=== PATIENT | male | born 1945 | race Caucasian/White ===

== ENCOUNTER 2019-11-16 15:07 | Inpatient (IN) | payer OTHER, MEDICARE ==
[~2019-11-16] VITALS: Ht 172.7 cm; Wt 114.5 kg
--- NOTE | 2019-11-16 15:42 | EKG ---
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
--- NOTE | 2019-11-16 15:42 | PHYS DOC ---
Past Medical History Past Medical History: OR Adult General Chief Complaint Chief Complaint: SHORTNESS OF BREATH HPI HPI Patient is a 74 year old male with history of OR, pacemaker, among other illnesses who presents to the ED today complaining of cough and shortness of breath that began on Wednesday. Patient reports being seen at urgent care on Wednesday and was given doxycycline and prednisone. He reports symptoms did not improve. He went back on Wednesday, he was given Tessalon Perles. He states symptoms have not improved he continues to have some symptoms. Patient denies any fever. Denies any nasal congestion. PCP Dr. Cain Review of Systems Review of Systems Constitutional: Denies fever or chills [] Eyes: Denies change in visual acuity, redness, or eye pain [] HENT: Denies nasal congestion or sore throat [] Respiratory: Reports cough and shortness of breath [] Cardiovascular: No additional information not addressed in HPI [] GI: Denies abdominal pain, nausea, vomiting, bloody stools or diarrhea [] : Denies dysuria or hematuria [] Musculoskeletal: Denies back pain or joint pain [] Integument: Denies rash or skin lesions [] Neurologic: Denies headache, focal weakness or sensory changes [] All other systems were reviewed and found to be within normal limits, except as documented in this note. Current Medications Current Medications Current Medications Medications (Trade) Dose Ordered Sig/Renetta Start Time Stop Time Status Last Admin Dose Admin Acetaminophen (Tylenol) 650 mg PRN Q4HRS PRN 11/16/19 17:45 11/17/19 17:44 Albuterol/ Ipratropium (Duoneb) 3 ml RTQID 11/16/19 20:00 11/17/19 19:59 Levofloxacin/ Dextrose 150 ml @ 100 mls/hr 1X ONCE 11/16/19 15:45 11/16/19 17:14 DC 11/16/19 16:57 100 MLS/HR Magnesium Sulfate/ Dextrose 100 ml @ 100 mls/hr 1X ONCE 11/16/19 17:45 11/16/19 18:44 Morphine Sulfate (Morphine Sulfate) 2 mg PRN Q2HR PRN 11/16/19 17:45 11/17/19 17:44 Ondansetron HCl (Zofran) 4 mg PRN Q8HRS PRN 11/16/19 17:45 11/17/19 17:44 Piperacillin Sod/ Tazobactam Sod 4.5 gm/Sodium Chloride 100 ml @ 200 mls/hr 1X ONCE 11/16/19 15:45 11/16/19 16:14 DC 11/16/19 16:10 200 MLS/HR Allergies Allergies Allergies Coded Allergies Type Severity Reaction Last Updated Verified No Known Drug Allergies 11/16/19 No Physical Exam Physical Exam Constitutional: Well developed, well nourished, no acute distress, non-toxic appearance. [] HENT: Normocephalic, atraumatic, bilateral external ears normal, oropharynx moist, no oral exudates, nose normal. [] Eyes: PERRLA, EOMI, conjunctiva normal, no discharge. [] Neck: Normal range of motion, no tenderness, supple, no stridor. [] Cardiovascular: Left upper chest with the pacemaker. Heart rate regular rhythm Lungs & Thorax: Bilateral breath sounds clear to auscultation [] Abdomen: Bowel sounds normal, soft, no tenderness, no masses, no pulsatile masses. [] Skin: Warm, dry, no erythema, no rash. [] Back: No tenderness, no CVA tenderness. [] Extremities: No tenderness, no cyanosis, no clubbing, ROM intact, no edema. [] Neurologic: Alert and oriented X 3, normal motor function, normal sensory function, no focal deficits noted. [] Psychologic: Affect normal, judgement normal, mood normal. [] Current Patient Data Vital Signs Vital Signs Date Time Temp Pulse Resp B/P (MAP) Pulse Ox O2 Delivery O2 Flow Rate FiO2 11/16/19 15:51 93 Room Air Lab Values Laboratory Tests Test 11/16/19 16:00 11/16/19 16:15 White Blood Count 10.7 x10^3/uL (4.0-11.0) Red Blood Count 4.10 x10^6/uL (4.30-5.70) L Hemoglobin 12.6 g/dL (13.0-17.5) L Hematocrit 37.0 % (39.0-53.0) L Mean Corpuscular Volume 90 fL (79-100) Mean Corpuscular Hemoglobin 31 pg (25-35) Mean Corpuscular Hemoglobin Concent 34 g/dL (31-37) Red Cell Distribution Width 13.6 % (11.5-14.5) Platelet Count 221 x10^3/uL (140-400) Neutrophils (%) (Auto) 79 % (31-73) H Lymphocytes (%) (Auto) 11 % (24-48) L Monocytes (%) (Auto) 10 % (0-9) H Eosinophils (%) (Auto) 0 % (0-3) Basophils (%) (Auto) 0 % (0-3) Neutrophils # (Auto) 8.4 x10^3/uL (1.8-7.7) H Lymphocytes # (Auto) 1.2 x10^3/uL (1.0-4.8) Monocytes # (Auto) 1.0 x10^3/uL (0.0-1.1) Eosinophils # (Auto) 0.0 x10^3/uL (0.0-0.7) Basophils # (Auto) 0.0 x10^3/uL (0.0-0.2) Sodium Level 141 mmol/L (136-145) Potassium Level 3.9 mmol/L (3.5-5.1) Chloride Level 102 mmol/L (98-107) Carbon Dioxide Level 28 mmol/L (21-32) Anion Gap 11 (6-14) Blood Urea Nitrogen 19 mg/dL (8-26) Creatinine 1.1 mg/dL (0.7-1.3) Estimated GFR (Cockcroft-Gault) 65.6 BUN/Creatinine Ratio 17 (6-20) Glucose Level 137 mg/dL (70-99) H Lactic Acid Level 2.0 mmol/L (0.4-2.0) Calcium Level 8.9 mg/dL (8.5-10.1) Magnesium Level 1.4 mg/dL (1.8-2.4) L Total Bilirubin 0.9 mg/dL (0.2-1.0) Aspartate Amino Transferase (AST) 23 U/L (15-37) Alanine Aminotransferase (ALT) 32 U/L (16-63) Alkaline Phosphatase 45 U/L (46-116) L Creatine Kinase 171 U/L (39-308) Creatine Kinase MB (Mass) 1.5 ng/mL (0.0-3.6) Creatine Kinase MB Relative Index 0.9 % (0-4) Troponin I Quantitative < 0.017 ng/mL (0.000-0.055) VR-Zqy-[id number]-Type Natriuretic Peptide 939 pg/mL (0-124) H Total Protein 6.6 g/dL (6.4-8.2) Albumin 3.8 g/dL (3.4-5.0) Albumin/Globulin Ratio 1.4 (1.0-1.7) Procalcitonin < 0.10 ng/mL (0.00-0.10) Influenza Type A Antigen Negative (NEGATIVE) Influenza Type B Antigen Negative (NEGATIVE) Laboratory Tests 11/16/19 16:00 Laboratory Tests 11/16/19 16:00 EKG EKG [address] Atkinson sinus rhythm HR 78 no STEMI[] Radiology/Procedures Radiology/Procedures []PROCEDURE: PORTABLE CHEST 1V Examination: PORTABLE CHEST 1V History: Cough Comparison/Correlation: None Findings: Portable frontal upright view of the chest was obtained. Dual-lead left-sided pacemaker is present. No pneumothorax. Right lung field is clear. Heart size is normal. Retrocardiac left basilar atelectasis/infiltrate is present. No significant pleural effusion. Bony structures are intact. Impression: Retrocardiac left basilar atelectasis/infiltrate. Electronically signed by: Nicolás Cervantes MD (11/16/2019 3:52 PM) [id number] DICTATED and SIGNED BY: NICOLÁS CERVANTES MD DATE: 11/16/19 1552 Course & Med Decision Making Course & Med Decision Making Pertinent Labs and Imaging studies reviewed. (See chart for details) This is a 74-year-old male patient presenting to the ED today complaining of shortness of breath and a cough that began Wednesday. Patient was diagnosed with pneumonia on Wednesday, was put on doxycycline and prednisone, no improvement of symptoms, went back to urgent care on Wednesday, was given Tessalon Perles. No improvement of symptoms. CBC with a normal WBC, CMP with magnesium of 1.4, lactic is normal. Patient is afebrile. Patient was given magnesium replacement in the ED. chest x-ray was noted for retrocardiac left basilar atelectasis/infiltrate. Patient was also giv en Zosyn and Levaquin in the ED. [address] Carlton who accepted patient for admission. Dragon Disclaimer Dragon Disclaimer This electronic medical record was generated, in whole or in part, using a voice recognition dictation system. Departure Departure Impression: Primary Impression: Left lower lobe pneumonia Additional Impression: Hypomagnesemia Disposition: ADMITTED INPATIENT Condition: STABLE Referrals: YOU CAIN (PCP) Problem Qualifiers Primary Impression: Left lower lobe pneumonia Pneumonia type: due to unspecified organism Qualified Codes: J18.9 - Pneumonia, unspecified organism CLOVER CULLEN APRN Nov 16, 2019 15:42
[2019-11-16] MEDS ORDERED: PIPERACILLIN/TAZOBACTAM 4.5 GM in IV NORMAL SALINE 100ML 100 ML IV ONE (15:45)
[2019-11-16] MEDS ORDERED: IPRATRPIUM/ALBUTEROL 0.5/2.5MG 3 ML NEBU. NEB ONE (15:45)
--- NOTE | 2019-11-16 15:55 | RAD ---
Examination: PORTABLE CHEST 1V History: Cough Comparison/Correlation: None Findings: Portable frontal upright view of the chest was obtained. Dual-lead left-sided pacemaker is present. No pneumothorax. Right lung field is clear. Heart size is normal. Retrocardiac left basilar atelectasis/infiltrate is present. No significant pleural effusion. Bony structures are intact. Impression: Retrocardiac left basilar atelectasis/infiltrate. Electronically signed by: Nicolás Angel MD (11/16/2019 3:52 PM) [id number]
[2019-11-16 16:16] LABS: BASO % 0 % (0-3); EOS % 0 % (0-3); HEMOGLOBIN 12.6 g/dL (13.0-17.5); LYMPH # 1.2 x10^3/uL (1.0-4.8); LYMPH % 11 % (24-48); MEAN CORPUSCULAR HEMOGLOBIN 31 pg (25-35); MEAN CORPUSCULAR HGB CONC 34 g/dL (31-37); MEAN CORPUSCULAR VOLUME 90 fL (79-100); MONO % 10 % (0-9); NEUT # 8.4 x10^3/uL (1.8-7.7); NEUT % 79 % (31-73); PLATELET COUNT 221 x10^3/uL (140-400); RED CELL DISTRIBUTION WIDTH 13.6 % (11.5-14.5); WHITE BLOOD COUNT 10.7 x10^3/uL (4.0-11.0)
[2019-11-16 16:42] LABS: CALCIUM 8.9 mg/dL (8.5-10.1); CREATININE 1.1 mg/dL (0.7-1.3); GFR 65.6; POTASSIUM 3.9 mmol/L (3.5-5.1)
[2019-11-16 16:56] LABS: ALBUMIN 3.8 g/dL (3.4-5.0); ALBUMIN/GLOBULIN RATIO 1.4 (1.0-1.7); MAGNESIUM 1.4 mg/dL (1.8-2.4); TOTAL BILIRUBIN 0.9 mg/dL (0.2-1.0); TOTAL PROTEIN 6.6 g/dL (6.4-8.2)
[2019-11-16 17:04] LABS: INFLUENZA A PATIENT NEGATIVE (NEGATIVE); INFLUENZA B PATIENT NEGATIVE (NEGATIVE)
[2019-11-16] MEDS ORDERED: MAGNESIUM SULFATE 1GM 100 ML IV ONE (17:45)
[2019-11-16] MEDS ORDERED: MORPHINE SULFATE 2 MG/ML VIAL. IV PRN (17:45)
[2019-11-16] MEDS ORDERED: ONDANSETRON PF 4 MG/2 ML VIAL. IV PRN (17:45)
[2019-11-16] MEDS ORDERED: ACETAMINOPHEN 325 MG TABLET. PO PRN (17:45)
[2019-11-16 19:30] VITALS: BP 116/69
--- NOTE | 2019-11-16 19:35 | NUR ---
Pt. arrived on unit at 1935 by bed from ER. Pt. complains of pain being 7/10 but feels comfortable. Admission assessment and questions were done at this time. Pt. is sitting in his chair with call light in reach. Will continue to monitor.
--- NOTE | 2019-11-16 20:06 | NUR ---
Ep[employer]. Doesn't eat pork. Addendum: 11/16/19 at 2009 by VINICIO SCOTT RN Amended: Links added.
[2019-11-16] MEDS ORDERED: DEXTROSE 50% 25 GM / 50ML DISP.SYRIN. IV PRN (20:15)
[2019-11-16] MEDS ORDERED: IV DEXTROSE 5% 250 ML BAG. IV PRN (20:15)
[2019-11-16] MEDS ORDERED: guaiFENesin/CODEINE 100mg/10mg 5 ML LIQUID PO PRN (20:15)
[2019-11-16] MEDS ORDERED: BENZONATATE 100 MG CAPSULE. PO PRN (20:15)
[2019-11-16] MEDS ORDERED: SITA1TAB7 PO (20:28)
[2019-11-16] MEDS ORDERED: ASPI-630 PO (20:28)
[2019-11-16] MEDS ORDERED: SITA1TAB11 PO (20:28)
[2019-11-16] MEDS ORDERED: METO25TA2 PO (20:28)
[2019-11-16] MEDS ORDERED: TAMS0.4C97 PO (20:28)
[2019-11-16] MEDS ORDERED: SIMV80TA17 PO (20:28)
[2019-11-16] MEDS ORDERED: PANT20TA2 PO (20:28)
[2019-11-16] MEDS ORDERED: LISI10TA2 PO (20:28)
[2019-11-16] MEDS ORDERED: MAGNESIUM SULFATE 2GM 50 ML IV ONE (21:00)
[2019-11-16] MEDS ORDERED: METOPROLOL TART IMMED RELEASE 25 MG TABLET. PO SCH (21:00)
[2019-11-16] MEDS: IPRATRPIUM/ALBUTEROL 0.5/2.5MG 3 ML NEBU. NEB SCH (21:09)
--- NOTE | 2019-11-16 21:09 | PDOC1 ---
History and Physical Date of Admission Date of Admission DATE: 11/16/19 TIME: 21:05 Source Source: Chart review, Patient History of Present Illness History of Present Illness Grupo is a 74 year old male admit from the ED today complaining of cough and shortness of breath that began on Wednesday. Patient reports being seen at urgent care on Wednesday and was given doxycycline and prednisone. He reports symptoms did not improve. He went back on Wednesday, he was given Tessalon Perles. He states symptoms have not improved he continues to have some symptoms. Patient denies any fever. Denies any nasal congestion. 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, Past Medical History Cardiovascular: CAD (PR in 2002), HTN Pulmonary: No pertinent hx Hepatobiliary: No pertinent hx Psych: No pertinent hx ENT: No pertinent hx Endocrine: Diabetes Dermatology: No pertinent hx Social History Smoke: No ALCOHOL: rare Drugs: None Current Problem List Problem List Problems Medical Problems: (1) Hypomagnesemia Status: Acute (2) Left lower lobe pneumonia Status: Acute Current Medications Current Medications Current Medications Piperacillin Sod/ Tazobactam Sod 4.5 gm/Sodium Chloride 100 ml @ 200 mls/hr 1X ONCE IV Last administered on 11/16/19at 16:10; Start 11/16/19 at 15:45; Stop 11/16/19 at 16:14; Status DC Levofloxacin/ Dextrose 150 ml @ 100 mls/hr 1X ONCE IV Last administered on 11/16/19at 16:57; Start 11/16/19 at 15:45; Stop 11/16/19 at 17:14; Status DC Albuterol/ Ipratropium (Duoneb) 3 ml 1X ONCE NEB Last administered on 11/16/19at 15:51; Start 11/16/19 at 15:45; Stop 11/16/19 at 16:04; Status DC Ondansetron HCl (Zofran) 4 mg PRN Q8HRS PRN IV NAUSEA/VOMITING; Start 11/16/19 at 17:45; Stop 11/17/19 at 17:44 Morphine Sulfate (Morphine Sulfate) 2 mg PRN Q2HR PRN IV PAIN; Start 11/16/19 at 17:45; Stop 11/17/19 at 17:44 Acetaminophen (Tylenol) 650 mg PRN Q4HRS PRN PO FEVER; Start 11/16/19 at 17:45; Stop 11/17/19 at 17:44 Albuterol/ Ipratropium (Duoneb) 3 ml RTQID NEB ; Start 11/16/19 at 20:00; Stop 11/17/19 at 19:59 Magnesium Sulfate/ Dextrose 100 ml @ 100 mls/hr 1X ONCE IV Last administered on 11/16/19at 18:23; Start 11/16/19 at 17:45; Stop 11/16/19 at 18:44; Status DC Magnesium Sulfate 50 ml @ 25 mls/hr 1X ONCE IV ; Start 11/16/19 at 21:00; Stop 11/16/19 at 22:59 Metoprolol Tartrate (Lopressor) 25 mg BID PO ; Start 11/16/19 at 21:00 Insulin Human Lispro (HumaLOG) 0-9 UNITS TIDWMEALS SQ ; Start 11/17/19 at 08:00 Dextrose (Dextrose 50%-Water Syringe) 12.5 gm PRN Q15MIN PRN IV SEE COMMENTS; Start 11/16/19 at 20:15 Dextrose (Iv Dextrose 5%) 250 ml PRN Q15MIN PRN IV SEE COMMENTS; Start 11/16/19 at 20:15 Guaifenesin/ Codeine Phosphate (Robitussin Ac) 10 ml PRN Q6HRS PRN PO COUGH; Start 11/16/19 at 20:15 Benzonatate (Tessalon Perle) 100 mg PRN TID PRN PO cough 1ST CHOICE; Start 11/16/19 at 20:15 Active Scripts Active Reported Janumet 50-1,000 Mg Tablet (Sitagliptin Phos/Metformin Hcl) 1 Each Tablet 1 Tab PO BID Janumet 50-500 Mg Tablet (Sitagliptin Phos/Metformin Hcl) 1 Each Tablet 1 Tab PO BID Lisinopril 10 Mg Tablet 1 Tab PO DAILYWBKFT Toprol Xl (Metoprolol Succinate) 25 Mg Tab.er.24h 2 Tab PO DAILYWBKFT 30 Days Flomax (Tamsulosin Hcl) 0.4 Mg Cap.er.24h 2 Cap PO HS Simvastatin 80 Mg Tablet 1,040 Mg PO HS Protonix (Pantoprazole Sodium) 20 Mg Tablet.dr 2 Tab PO DAILY Aspirin 81 Mg Tab.chew 1 Tab PO DAILY Allergies Allergies: Coded Allergies: No Known Drug Allergies (Unverified , 11/16/19) ROS General: YES: Chills; No: Night Sweats, Fatigue, Malaise, Appetite, Other PSYCHOLOGICAL ROS: No: Anxiety, Behavioral Disorder, Concentration difficultie, Decreased libido, Depression, Disorientation, Hallucinations, Hostility, Irritablity, Memory difficulties, Mood Swings, Obsessive thoughts, Physical abuse, Sexual abuse, Sleep disturbances, Suicidal ideation, Other Eyes: No Blurry vision, No Decreased vision, No Double vision, No Dry eyes, No Excessive tearing, No Eye Pain, No Itchy Eyes, No Loss of vision, No Photophobia, No Scotomata, No Uses contacts, No Uses glasses, No Other HEENT: No: Heacaches, Visual Changes, Hearing change, Nasal congestion, Nasal discharge, Oral lesions, Sinus pain, Sore Throat, Epistaxis, Sneezing, Snoring, Tinnitus, Vertigo, Vocal changes, Other Respiratory: YES: Cough, Shortness of breath, SOB with excertion, Sputum Changes; No: Hemoptysis, Orthopnea, Pleuritic Pain, Stridor, Tachypnea, Wheezing, Other Cardiovascular: No Chest Pain, No Palpitations, No Orthopnea, No Paroxysmal Noc. Dyspnea, No Edema, No Lt Headedness, No Other Gastrointestinal: No Nausea, No Vomiting, No Abdominal Pain, No Diarrhea, No Constipation, No Melena, No Hematochezia, No Other Genitourinary: No Dysuria, No Frequency, No Incontinence, No Hematuria, No Retention, No Discharge, No Urgency, No Pain, No Flank Pain, No Other, No , No , No , No , No , No , No Musculoskeletal: Yes Joint Stiffness; No Gait Disturbance, No Joint Pain, No Joint Swelling, No Muscle Pain, No Muscular Weakness, No Pain In:, No Swelling In:, No Other Neurological: No Behavorial Changes, No Bowel/Bladder ControlChng, No Confusion, No Dizziness, No Gait Disturbance, No Headaches, No Impaired Coord/balance, No Memory Loss, No Numbness/Tingling, No Seizures, No Speech Problems, No Tremors, No Visual Changes, No Weakness, No Other Skin: No Dry Skin, No Eczema, No Hair Changes, No Lumps, No Mole Changes, No Mottling, No Nail Changes, No Pruritus, No Rash, No Skin Lesion Changes, No Other, No Acne Physical Exam General: Alert, Oriented X3, mild distress HEENT: Atraumatic, PERRLA, EOMI, Mucous membr. moist/pink Lungs: Clear to auscultation Heart: S1S2, RRR, no gallops Extremities: No clubbing, No edema Skin: No breakdown Neuro: Normal gait, Normal speech, Normal tone, Sensation intact Psych/Mental Status: Mood NL Vitals Vitals Vital Signs Date Time Temp Pulse Resp B/P (MAP) Pulse Ox O2 Delivery O2 Flow Rate FiO2 11/16/19 19:30 97.9 63 22 116/69 (85) 94 Room Air 97.9 11/16/19 19:00 2.0 Labs Labs Laboratory Tests Test 11/16/19 16:00 11/16/19 16:15 11/16/19 20:57 White Blood Count 10.7 x10^3/uL (4.0-11.0) Red Blood Count 4.10 x10^6/uL (4.30-5.70) Hemoglobin 12.6 g/dL (13.0-17.5) Hematocrit 37.0 % (39.0-53.0) Mean Corpuscular Volume 90 fL (79-100) Mean Corpuscular Hemoglobin 31 pg (25-35) Mean Corpuscular Hemoglobin Concent 34 g/dL (31-37) Red Cell Distribution Width 13.6 % (11.5-14.5) Platelet Count 221 x10^3/uL (140-400) Neutrophils (%) (Auto) 79 % (31-73) Lymphocytes (%) (Auto) 11 % (24-48) Monocytes (%) (Auto) 10 % (0-9) Eosinophils (%) (Auto) 0 % (0-3) Basophils (%) (Auto) 0 % (0-3) Neutrophils # (Auto) 8.4 x10^3/uL (1.8-7.7) Lymphocytes # (Auto) 1.2 x10^3/uL (1.0-4.8) Monocytes # (Auto) 1.0 x10^3/uL (0.0-1.1) Eosinophils # (Auto) 0.0 x10^3/uL (0.0-0.7) Basophils # (Auto) 0.0 x10^3/uL (0.0-0.2) Sodium Level 141 mmol/L (136-145) Potassium Level 3.9 mmol/L (3.5-5.1) Chloride Level 102 mmol/L (98-107) Carbon Dioxide Level 28 mmol/L (21-32) Anion Gap 11 (6-14) Blood Urea Nitrogen 19 mg/dL (8-26) Creatinine 1.1 mg/dL (0.7-1.3) Estimated GFR (Cockcroft-Gault) 65.6 BUN/Creatinine Ratio 17 (6-20) Glucose Level 137 mg/dL (70-99) Lactic Acid Level 2.0 mmol/L (0.4-2.0) Calcium Level 8.9 mg/dL (8.5-10.1) Magnesium Level 1.4 mg/dL (1.8-2.4) Total Bilirubin 0.9 mg/dL (0.2-1.0) Aspartate Amino Transf (AST/SGOT) 23 U/L (15-37) Alanine Aminotransferase (ALT/SGPT) 32 U/L (16-63) Alkaline Phosphatase 45 U/L (46-116) Creatine Kinase 171 U/L (39-308) Creatine Kinase MB (Mass) 1.5 ng/mL (0.0-3.6) Creatine Kinase MB Relative Index 0.9 % (0-4) Troponin I Quantitative < 0.017 ng/mL (0.000-0.055) GW-Skp-F-Type Natriuretic Peptide 939 pg/mL (0-124) Total Protein 6.6 g/dL (6.4-8.2) Albumin 3.8 g/dL (3.4-5.0) Albumin/Globulin Ratio 1.4 (1.0-1.7) Procalcitonin < 0.10 ng/mL (0.00-0.10) Influenza Type A Antigen Negative (NEGATIVE) Influenza Type B Antigen Negative (NEGATIVE) Glucose (Fingerstick) 205 mg/dL (70-99) Laboratory Tests Test 11/16/19 16:00 11/16/19 16:15 11/16/19 20:57 White Blood Count 10.7 x10^3/uL (4.0-11.0) Red Blood Count 4.10 x10^6/uL (4.30-5.70) Hemoglobin 12.6 g/dL (13.0-17.5) Hematocrit 37.0 % (39.0-53.0) Mean Corpuscular Volume 90 fL (79-100) Mean Corpuscular Hemoglobin 31 pg (25-35) Mean Corpuscular Hemoglobin Concent 34 g/dL (31-37) Red Cell Distribution Width 13.6 % (11.5-14.5) Platelet Count 221 x10^3/uL (140-400) Neutrophils (%) (Auto) 79 % (31-73) Lymphocytes (%) (Auto) 11 % (24-48) Monocytes (%) (Auto) 10 % (0-9) Eosinophils (%) (Auto) 0 % (0-3) Basophils (%) (Auto) 0 % (0-3) Neutrophils # (Auto) 8.4 x10^3/uL (1.8-7.7) Lymphocytes # (Auto) 1.2 x10^3/uL (1.0-4.8) Monocytes # (Auto) 1.0 x10^3/uL (0.0-1.1) Eosinophils # (Auto) 0.0 x10^3/uL (0.0-0.7) Basophils # (Auto) 0.0 x10^3/uL (0.0-0.2) Sodium Level 141 mmol/L (136-145) Potassium Level 3.9 mmol/L (3.5-5.1) Chloride Level 102 mmol/L (98-107) Carbon Dioxide Level 28 mmol/L (21-32) Anion Gap 11 (6-14) Blood Urea Nitrogen 19 mg/dL (8-26) Creatinine 1.1 mg/dL (0.7-1.3) Estimated GFR (Cockcroft-Gault) 65.6 BUN/Creatinine Ratio 17 (6-20) Glucose Level 137 mg/dL (70-99) Lactic Acid Level 2.0 mmol/L (0.4-2.0) Calcium Level 8.9 mg/dL (8.5-10.1) Magnesium Level 1.4 mg/dL (1.8-2.4) Total Bilirubin 0.9 mg/dL (0.2-1.0) Aspartate Amino Transf (AST/SGOT) 23 U/L (15-37) Alanine Aminotransferase (ALT/SGPT) 32 U/L (16-63) Alkaline Phosphatase 45 U/L (46-116) Creatine Kinase 171 U/L (39-308) Creatine Kinase MB (Mass) 1.5 ng/mL (0.0-3.6) Creatine Kinase MB Relative Index 0.9 % (0-4) Troponin I Quantitative < 0.017 ng/mL (0.000-0.055) WE-Vfg-V-Type Natriuretic Peptide 939 pg/mL (0-124) Total Protein 6.6 g/dL (6.4-8.2) Albumin 3.8 g/dL (3.4-5.0) Albumin/Globulin Ratio 1.4 (1.0-1.7) Procalcitonin < 0.10 ng/mL (0.00-0.10) Influenza Type A Antigen Negative (NEGATIVE) Influenza Type B Antigen Negative (NEGATIVE) Glucose (Fingerstick) 205 mg/dL (70-99) VTE Prophylaxis Ordered VTE Prophylaxis Devices: No VTE Pharmacological Prophylaxi: Yes Assessment/Plan Assessment/Plan cough outpatient pneumonia, cough and dyspnea, not improved dm2, will have SSI obese, BMI 38 DIANA, he brought his CPAP hypomag, replaced consutl PULM admit obs JAKY BIRCH MD Nov 16, 2019 21:09
[2019-11-16] MEDS ORDERED: ENOXAPARIN 40 MG/0.4 ML SYRINGE. SQ SCH (22:00)
[2019-11-16] MEDS ORDERED: EZET1TAB35 PO (22:11)
[2019-11-16 23:00] VITALS: BP 99/50
[2019-11-16] MEDS ORDERED: TAMSULOSIN 0.4 MG CAP.ER.24H. PO SCH (23:00)
[2019-11-16] MEDS ORDERED: EZETIMIBE 10 MG TABLET. PO SCH (23:00)
[2019-11-16] MEDS ORDERED: SIMVASTATIN 40 MG TABLET. PO SCH (23:00)
--- NOTE | 2019-11-16 23:00 | NUR ---
Pt. refused lovenox tonight. RN explained what it was for but patient would like to speak to MD before taking it.
[2019-11-16] MEDS: PIPERACILLIN/TAZOBACTAM 4.5 GM in IV NORMAL SALINE 100ML 100 ML IV SCH (23:03)
[2019-11-17 03:00] VITALS: BP 122/64
[2019-11-17 05:04] LABS: BASO % 0 % (0-3); EOS % 0 % (0-3); HEMATOCRIT 32.7 % (39.0-53.0); HEMOGLOBIN 11.6 g/dL (13.0-17.5); LYMPH # 0.9 x10^3/uL (1.0-4.8); LYMPH % 11 % (24-48); MEAN CORPUSCULAR HEMOGLOBIN 32 pg (25-35); MEAN CORPUSCULAR HGB CONC 36 g/dL (31-37); MEAN CORPUSCULAR VOLUME 89 fL (79-100); MONO # 0.8 x10^3/uL (0.0-1.1); MONO % 11 % (0-9); NEUT % 78 % (31-73); PLATELET COUNT 196 x10^3/uL (140-400); RED BLOOD COUNT 3.67 x10^6/uL (4.30-5.70); RED CELL DISTRIBUTION WIDTH 13.6 % (11.5-14.5); WHITE BLOOD COUNT 7.7 x10^3/uL (4.0-11.0)
[2019-11-17] MEDS: PIPERACILLIN/TAZOBACTAM 4.5 GM in IV NORMAL SALINE 100ML 100 ML IV SCH ×2 (06:03→12:16)
[2019-11-17] MEDS: IPRATRPIUM/ALBUTEROL 0.5/2.5MG 3 ML NEBU. NEB SCH ×3 (07:11→16:05)
[2019-11-17 07:20] VITALS: BP 109/56
[2019-11-17] MEDS ORDERED: PANTOPRAZOLE 40 MG TABLET.DR. PO SCH (07:30)
[2019-11-17] MEDS ORDERED: metFORMIN 500 MG TABLET PO SCH (08:00)
[2019-11-17] MEDS: INSULIN LISPRO 300 UNITS/3 ML VIAL. SQ SCH ×2 (08:00→12:00)
[2019-11-17] MEDS ORDERED: LISINOPRIL 10 MG TABLET PO SCH (08:00)
[2019-11-17] MEDS ORDERED: METOPROLOL SUCC 24HR ER 50 MG TAB.ER.24H. PO SCH (08:00)
[2019-11-17] MEDS ORDERED: LINAGLIPTIN 5 MG TABLET PO SCH (09:00)
[2019-11-17] MEDS ORDERED: ASPIRIN CHEWABLE 81 MG TABLET. PO SCH (09:00)
[2019-11-17 11:13] VITALS: BP 117/49
[2019-11-17 11:15] VITALS: BP 116/74
--- NOTE | 2019-11-17 11:28 | NUR ---
SW following. Discussed with RN, pt is from home with family, gets around okay. Pt has pneumonia. RN advised no SW needs at this time. SW will continue to follow should any discharge needs arise.
--- NOTE | 2019-11-17 12:01 | PDOC ---
PULMONARY PROGRESS NOTES Vitals Vital Signs Date Time Temp Pulse Resp B/P (MAP) Pulse Ox O2 Delivery O2 Flow Rate FiO2 11/17/19 11:15 97.7 70 16 116/74 (88) 96 97.7 11/17/19 11:13 Room Air 11/16/19 19:00 2.0 Labs Laboratory Tests Test 11/16/19 16:00 11/16/19 16:15 11/16/19 20:57 11/17/19 03:30 White Blood Count 10.7 x10^3/uL (4.0-11.0) 7.7 x10^3/uL (4.0-11.0) Red Blood Count 4.10 x10^6/uL (4.30-5.70) 3.67 x10^6/uL (4.30-5.70) Hemoglobin 12.6 g/dL (13.0-17.5) 11.6 g/dL (13.0-17.5) Hematocrit 37.0 % (39.0-53.0) 32.7 % (39.0-53.0) Mean Corpuscular Volume 90 fL (79-100) 89 fL (79-100) Mean Corpuscular Hemoglobin 31 pg (25-35) 32 pg (25-35) Mean Corpuscular Hemoglobin Concent 34 g/dL (31-37) 36 g/dL (31-37) Red Cell Distribution Width 13.6 % (11.5-14.5) 13.6 % (11.5-14.5) Platelet Count 221 x10^3/uL (140-400) 196 x10^3/uL (140-400) Neutrophils (%) (Auto) 79 % (31-73) 78 % (31-73) Lymphocytes (%) (Auto) 11 % (24-48) 11 % (24-48) Monocytes (%) (Auto) 10 % (0-9) 11 % (0-9) Eosinophils (%) (Auto) 0 % (0-3) 0 % (0-3) Basophils (%) (Auto) 0 % (0-3) 0 % (0-3) Neutrophils # (Auto) 8.4 x10^3/uL (1.8-7.7) 6.0 x10^3/uL (1.8-7.7) Lymphocytes # (Auto) 1.2 x10^3/uL (1.0-4.8) 0.9 x10^3/uL (1.0-4.8) Monocytes # (Auto) 1.0 x10^3/uL (0.0-1.1) 0.8 x10^3/uL (0.0-1.1) Eosinophils # (Auto) 0.0 x10^3/uL (0.0-0.7) 0.0 x10^3/uL (0.0-0.7) Basophils # (Auto) 0.0 x10^3/uL (0.0-0.2) 0.0 x10^3/uL (0.0-0.2) Sodium Level 141 mmol/L (136-145) Potassium Level 3.9 mmol/L (3.5-5.1) Chloride Level 102 mmol/L (98-107) Carbon Dioxide Level 28 mmol/L (21-32) Anion Gap 11 (6-14) Blood Urea Nitrogen 19 mg/dL (8-26) Creatinine 1.1 mg/dL (0.7-1.3) Estimated GFR (Cockcroft-Gault) 65.6 BUN/Creatinine Ratio 17 (6-20) Glucose Level 137 mg/dL (70-99) Lactic Acid Level 2.0 mmol/L (0.4-2.0) Calcium Level 8.9 mg/dL (8.5-10.1) Magnesium Level 1.4 mg/dL (1.8-2.4) Total Bilirubin 0.9 mg/dL (0.2-1.0) Aspartate Amino Transf (AST/SGOT) 23 U/L (15-37) Alanine Aminotransferase (ALT/SGPT) 32 U/L (16-63) Alkaline Phosphatase 45 U/L (46-116) Creatine Kinase 171 U/L (39-308) Creatine Kinase MB (Mass) 1.5 ng/mL (0.0-3.6) Creatine Kinase MB Relative Index 0.9 % (0-4) Troponin I Quantitative < 0.017 ng/mL (0.000-0.055) YA-Kww-W-Type Natriuretic Peptide 939 pg/mL (0-124) Total Protein 6.6 g/dL (6.4-8.2) Albumin 3.8 g/dL (3.4-5.0) Albumin/Globulin Ratio 1.4 (1.0-1.7) Procalcitonin < 0.10 ng/mL (0.00-0.10) Influenza Type A Antigen Negative (NEGATIVE) Influenza Type B Antigen Negative (NEGATIVE) Glucose (Fingerstick) 205 mg/dL (70-99) Test 11/17/19 07:49 11/17/19 11:56 Glucose (Fingerstick) 133 mg/dL (70-99) 117 mg/dL (70-99) Laboratory Tests Test 11/16/19 16:00 11/16/19 16:15 11/16/19 20:57 11/17/19 03:30 White Blood Count 10.7 x10^3/uL (4.0-11.0) 7.7 x10^3/uL (4.0-11.0) Red Blood Count 4.10 x10^6/uL (4.30-5.70) 3.67 x10^6/uL (4.30-5.70) Hemoglobin 12.6 g/dL (13.0-17.5) 11.6 g/dL (13.0-17.5) Hematocrit 37.0 % (39.0-53.0) 32.7 % (39.0-53.0) Mean Corpuscular Volume 90 fL (79-100) 89 fL (79-100) Mean Corpuscular Hemoglobin 31 pg (25-35) 32 pg (25-35) Mean Corpuscular Hemoglobin Concent 34 g/dL (31-37) 36 g/dL (31-37) Red Cell Distribution Width 13.6 % (11.5-14.5) 13.6 % (11.5-14.5) Platelet Count 221 x10^3/uL (140-400) 196 x10^3/uL (140-400) Neutrophils (%) (Auto) 79 % (31-73) 78 % (31-73) Lymphocytes (%) (Auto) 11 % (24-48) 11 % (24-48) Monocytes (%) (Auto) 10 % (0-9) 11 % (0-9) Eosinophils (%) (Auto) 0 % (0-3) 0 % (0-3) Basophils (%) (Auto) 0 % (0-3) 0 % (0-3) Neutrophils # (Auto) 8.4 x10^3/uL (1.8-7.7) 6.0 x10^3/uL (1.8-7.7) Lymphocytes # (Auto) 1.2 x10^3/uL (1.0-4.8) 0.9 x10^3/uL (1.0-4.8) Monocytes # (Auto) 1.0 x10^3/uL (0.0-1.1) 0.8 x10^3/uL (0.0-1.1) Eosinophils # (Auto) 0.0 x10^3/uL (0.0-0.7) 0.0 x10^3/uL (0.0-0.7) Basophils # (Auto) 0.0 x10^3/uL (0.0-0.2) 0.0 x10^3/uL (0.0-0.2) Sodium Level 141 mmol/L (136-145) Potassium Level 3.9 mmol/L (3.5-5.1) Chloride Level 102 mmol/L (98-107) Carbon Dioxide Level 28 mmol/L (21-32) Anion Gap 11 (6-14) Blood Urea Nitrogen 19 mg/dL (8-26) Creatinine 1.1 mg/dL (0.7-1.3) Estimated GFR (Cockcroft-Gault) 65.6 BUN/Creatinine Ratio 17 (6-20) Glucose Level 137 mg/dL (70-99) Lactic Acid Level 2.0 mmol/L (0.4-2.0) Calcium Level 8.9 mg/dL (8.5-10.1) Magnesium Level 1.4 mg/dL (1.8-2.4) Total Bilirubin 0.9 mg/dL (0.2-1.0) Aspartate Amino Transf (AST/SGOT) 23 U/L (15-37) Alanine Aminotransferase (ALT/SGPT) 32 U/L (16-63) Alkaline Phosphatase 45 U/L (46-116) Creatine Kinase 171 U/L (39-308) Creatine Kinase MB (Mass) 1.5 ng/mL (0.0-3.6) Creatine Kinase MB Relative Index 0.9 % (0-4) Troponin I Quantitative < 0.017 ng/mL (0.000-0.055) MH-Ald-J-Type Natriuretic Peptide 939 pg/mL (0-124) Total Protein 6.6 g/dL (6.4-8.2) Albumin 3.8 g/dL (3.4-5.0) Albumin/Globulin Ratio 1.4 (1.0-1.7) Procalcitonin < 0.10 ng/mL (0.00-0.10) Influenza Type A Antigen Negative (NEGATIVE) Influenza Type B Antigen Negative (NEGATIVE) Glucose (Fingerstick) 205 mg/dL (70-99) Test 11/17/19 07:49 11/17/19 11:56 Glucose (Fingerstick) 133 mg/dL (70-99) 117 mg/dL (70-99) Medications Active Scripts Medications Dose Route/Sig Max Daily Dose Days Date Category Vytorin 10-40 Mg Tablet (Ezetimibe/Simvastatin) 1 Each Tablet 1 Tab PO HS 30 11/16/19 Reported Janumet 50-1,000 Mg Tablet (Sitagliptin Phos/Metformin Hcl) 1 Each Tablet 1 Tab PO BID 11/16/19 Reported Lisinopril 10 Mg Tablet 1 Tab PO DAILYWBKFT 11/16/19 Reported Toprol Xl (Metoprolol Succinate) 25 Mg Tab.er.24h 2 Tab PO DAILYWBKFT 30 11/16/19 Reported Flomax (Tamsulosin Hcl) 0.4 Mg Cap.er.24h 2 Cap PO HS 11/16/19 Reported Protonix (Pantoprazole Sodium) 20 Mg Tablet.dr 2 Tab PO DAILY 11/16/19 Reported Aspirin 81 Mg Tab.chew 1 Tab PO DAILY 11/16/19 Reported Impression . FULL NOTE DICTATED SUSPECT PNEUMONIA WILL RULE OUT PE IF CT ANGIO IS NEGATIVE OK TO DC LATER TODAY ON LEVAQUIN FOLLOW UP WITH ME IN 4 WEEKS THANKS MARIA LUISA OCASIO MD Nov 17, 2019 12:01
[2019-11-17] MEDS ORDERED: IOHEXOL 350 MG/ML 100 ML VIAL. IV ONE (12:15)
[2019-11-17] MEDS ORDERED: LEVO750T31 PO (12:26)
--- NOTE | 2019-11-17 14:04 | CONS ---
DATE OF CONSULTATION: 11/17/2019 ATTENDING PHYSICIAN: Bell Carlton MD REASON FOR CONSULTATION: The patient seen in pulmonary consultation at the request of Dr. Carlton for increasing shortness of air, abnormal chest x-ray. HISTORY OF PRESENT ILLNESS: The patient is a 74-year-old nonsmoker that presented to the [facility] couple of days ago. He started feeling bad over the weekend, increasing shortness of breath, fever, acute onset of shortness of breath associated with chest discomfort. He was seen in the Urgent Care Center, had a chest x-ray revealing lower lobe "pneumonia." He was treated. He was given doxycycline. No improvement. He presented to the Emergency Room, had a chest x-ray which confirmed an infiltrate, retrocardiac. I was asked to see him in consultation. The patient has no prior history of tobacco use or pulmonary disorders. He drives approximately 120 minutes per day sitting in a car. He denies any lower extremity pain or edema. No recent lower extremity trauma. No prior history of DVT or pulmonary embolism. PAST MEDICAL HISTORY: Coronary artery disease with previous myocardial infarction in 2002, hypertension, diabetes, obstructive sleep apnea. PAST SURGICAL HISTORY: No recent major surgeries. ALLERGIES: No known drug allergies. REVIEW OF SYSTEMS: CONSTITUTIONAL: No fever or chills. EYES: No change in visual acuity. HENT: No nasal congestion or sore throat. PULMONARY: As indicated above. CARDIOVASCULAR: As indicated above. GASTROINTESTINAL: No nausea, vomiting, diarrhea. GENITOURINARY: No dysuria or frequency. MUSCULOSKELETAL: No localized muscle aches or joint pains. SKIN: No new skin rashes. NEUROLOGIC: No headaches, diplopia, or blurred vision. PHYSICAL EXAMINATION: GENERAL: Morbid obese individual, in no respiratory distress. VITAL SIGNS: Currently on room air. HEENT: Eyes, the sclerae were nonicteric. NECK: Jugular venous distention could not be assessed secondary to body habitus. CHEST: Full expansion. LUNGS: Diminished breath sounds throughout both lung busch. Some crackles in the bases. CARDIOVASCULAR: Regular rate and rhythm with S1, S2. No S3. ABDOMEN: Soft, nontender, nondistended. EXTREMITIES: No clubbing, cyanosis, or edema. LABORATORY DATA: Reviewed. Serology for influenza was negative. Electrolytes were noted. White count was normal. Chest x-ray as indicated above. IMPRESSION: 1. Abnormal x-ray. 2. Progressive dyspnea. 3. Pleurisy. PLAN: I concur with treatment for pneumonia, suspect Gram-negative. Considering the patient's acute onset of shortness of air and his 2-hour drive on a daily basis, we will proceed with ruling out possibility of PE with pulmonary infarct. My clinical suspicion is low. With that being said, we will complete workup. If CT angiogram is negative, may discharge the patient home later on today on Levaquin. I do appreciate the privilege in sharing in the patient's care. MARIA LUISA OCASIO MD DR: RADHA/lionel JOB#: [id number] / [id number]
--- NOTE | 2019-11-17 14:56 | RAD ---
CTA OF THE CHEST WITH AND WITHOUT CONTRAST Clinical indications: Shortness of air. Technique: Noncontrast axial localizer was performed. After IV infusion of 100 cc of Omnipaque 350, helical CT scanning of the chest was performed using the CT pulmonary embolism protocol. A coronal MIP reconstruction was generated. PQRS compliance Statement One or more of the following individualized dose reduction techniques were utilized for this study: 1. Automated exposure control 2. Adjustment of the mA and/or kV according to patient size 3. Use of iterative reconstruction technique Comparison: None available. Findings: Right paratracheal aortic pulmonary window lymph nodes are seen which are not significantly enlarged. Bilateral hilar lymph nodes are seen which are not significantly enlarged. These lymph nodes most likely are reactive in nature. No pulmonary embolism is evident. No aneurysmal dilatation or dissection of the thoracic aorta is seen. Calcified atheromatous disease of the coronary arteries is seen. The heart size is mildly enlarged. No pericardial effusion is seen. Minimal bilateral pleural effusions are seen there is a dense consolidative lung infiltrate or bronchograms within the left lower lobe. Smaller consolidative lung field is seen within the posterior and lateral aspects of the right lower lobe. No pneumothorax is seen. The proximal bronchial tree is patent. No adrenal mass T12 vertebral body is not completely seen in this study. Lucency of the superior aspect of the T12 vertebral body is seen. Lytic process is possible. IMPRESSION: No pulmonary embolism. Consolidative lung infiltrates within the lower lobes bilaterally worse on the left side. Bilateral pneumonia or aspiration pneumonitis. Minimal small bilateral pleural effusions are seen. Reactive mediastinal and hilar lymphadenopathy. Calcified atheromatous disease of the coronary arteries. Mild cardiomegaly. Lucency of the superior aspect of the T12 vertebral body. Lytic process is possible. Therefore, recommend thoracic spine MRI study for further evaluation. Electronically signed by: Kike Menjivar MD (11/17/2019 2:53 PM) [id number]
[2019-11-17 15:15] VITALS: BP 107/53
--- NOTE | 2019-11-17 16:00 | NUR ---
CT scan was negative. Okay to discharge by Dr. Carlton.
--- NOTE | 2019-11-17 16:25 | NUR ---
Discharge instructions given with prescription. Answered questions and concerns. Verbalized understanding. Pt discharged home accompanied by spouse.
--- NOTE | 2019-11-17 17:16 | PDOC3 ---
Discharge Summary Visit Information Date of Admission: Nov 16, 2019 Date of Discharge: Nov 17, 2019 Final Diagnosis cough outpatient pneumonia, cough and dyspnea, not improved dm2, will have SSI obese, BMI 38 DIANA, he brought his CPAP hypomag, Problems Medical Problems: (1) Hypomagnesemia Status: Acute (2) Left lower lobe pneumonia Status: Acute Brief Hospital Course Allergies Allergies Coded Allergies Type Severity Reaction Last Updated Verified No Known Drug Allergies 11/16/19 No Vital Signs Vital Signs Date Time Temp Pulse Resp B/P (MAP) Pulse Ox O2 Delivery O2 Flow Rate FiO2 11/17/19 16:05 Room Air 11/17/19 15:15 98.6 89 18 107/53 (71) 94 98.6 11/16/19 19:00 2.0 Lab Results Laboratory Tests Test 11/16/19 16:00 11/16/19 16:15 11/16/19 20:57 11/17/19 03:30 White Blood Count 10.7 x10^3/uL (4.0-11.0) 7.7 x10^3/uL (4.0-11.0) Red Blood Count 4.10 x10^6/uL (4.30-5.70) 3.67 x10^6/uL (4.30-5.70) Hemoglobin 12.6 g/dL (13.0-17.5) 11.6 g/dL (13.0-17.5) Hematocrit 37.0 % (39.0-53.0) 32.7 % (39.0-53.0) Mean Corpuscular Volume 90 fL (79-100) 89 fL (79-100) Mean Corpuscular Hemoglobin 31 pg (25-35) 32 pg (25-35) Mean Corpuscular Hemoglobin Concent 34 g/dL (31-37) 36 g/dL (31-37) Red Cell Distribution Width 13.6 % (11.5-14.5) 13.6 % (11.5-14.5) Platelet Count 221 x10^3/uL (140-400) 196 x10^3/uL (140-400) Neutrophils (%) (Auto) 79 % (31-73) 78 % (31-73) Lymphocytes (%) (Auto) 11 % (24-48) 11 % (24-48) Monocytes (%) (Auto) 10 % (0-9) 11 % (0-9) Eosinophils (%) (Auto) 0 % (0-3) 0 % (0-3) Basophils (%) (Auto) 0 % (0-3) 0 % (0-3) Neutrophils # (Auto) 8.4 x10^3/uL (1.8-7.7) 6.0 x10^3/uL (1.8-7.7) Lymphocytes # (Auto) 1.2 x10^3/uL (1.0-4.8) 0.9 x10^3/uL (1.0-4.8) Monocytes # (Auto) 1.0 x10^3/uL (0.0-1.1) 0.8 x10^3/uL (0.0-1.1) Eosinophils # (Auto) 0.0 x10^3/uL (0.0-0.7) 0.0 x10^3/uL (0.0-0.7) Basophils # (Auto) 0.0 x10^3/uL (0.0-0.2) 0.0 x10^3/uL (0.0-0.2) Sodium Level 141 mmol/L (136-145) Potassium Level 3.9 mmol/L (3.5-5.1) Chloride Level 102 mmol/L (98-107) Carbon Dioxide Level 28 mmol/L (21-32) Anion Gap 11 (6-14) Blood Urea Nitrogen 19 mg/dL (8-26) Creatinine 1.1 mg/dL (0.7-1.3) Estimated GFR (Cockcroft-Gault) 65.6 BUN/Creatinine Ratio 17 (6-20) Glucose Level 137 mg/dL (70-99) Lactic Acid Level 2.0 mmol/L (0.4-2.0) Calcium Level 8.9 mg/dL (8.5-10.1) Magnesium Level 1.4 mg/dL (1.8-2.4) Total Bilirubin 0.9 mg/dL (0.2-1.0) Aspartate Amino Transf (AST/SGOT) 23 U/L (15-37) Alanine Aminotransferase (ALT/SGPT) 32 U/L (16-63) Alkaline Phosphatase 45 U/L (46-116) Creatine Kinase 171 U/L (39-308) Creatine Kinase MB (Mass) 1.5 ng/mL (0.0-3.6) Creatine Kinase MB Relative Index 0.9 % (0-4) Troponin I Quantitative < 0.017 ng/mL (0.000-0.055) OO-Hpg-O-Type Natriuretic Peptide 939 pg/mL (0-124) Total Protein 6.6 g/dL (6.4-8.2) Albumin 3.8 g/dL (3.4-5.0) Albumin/Globulin Ratio 1.4 (1.0-1.7) Procalcitonin < 0.10 ng/mL (0.00-0.10) Influenza Type A Antigen Negative (NEGATIVE) Influenza Type B Antigen Negative (NEGATIVE) Glucose (Fingerstick) 205 mg/dL (70-99) Test 11/17/19 07:49 11/17/19 11:56 Glucose (Fingerstick) 133 mg/dL (70-99) 117 mg/dL (70-99) Laboratory Tests Test 11/16/19 20:57 11/17/19 03:30 11/17/19 07:49 11/17/19 11:56 Glucose (Fingerstick) 205 mg/dL (70-99) 133 mg/dL (70-99) 117 mg/dL (70-99) White Blood Count 7.7 x10^3/uL (4.0-11.0) Red Blood Count 3.67 x10^6/uL (4.30-5.70) Hemoglobin 11.6 g/dL (13.0-17.5) Hematocrit 32.7 % (39.0-53.0) Mean Corpuscular Volume 89 fL (79-100) Mean Corpuscular Hemoglobin 32 pg (25-35) Mean Corpuscular Hemoglobin Concent 36 g/dL (31-37) Red Cell Distribution Width 13.6 % (11.5-14.5) Platelet Count 196 x10^3/uL (140-400) Neutrophils (%) (Auto) 78 % (31-73) Lymphocytes (%) (Auto) 11 % (24-48) Monocytes (%) (Auto) 11 % (0-9) Eosinophils (%) (Auto) 0 % (0-3) Basophils (%) (Auto) 0 % (0-3) Neutrophils # (Auto) 6.0 x10^3/uL (1.8-7.7) Lymphocytes # (Auto) 0.9 x10^3/uL (1.0-4.8) Monocytes # (Auto) 0.8 x10^3/uL (0.0-1.1) Eosinophils # (Auto) 0.0 x10^3/uL (0.0-0.7) Basophils # (Auto) 0.0 x10^3/uL (0.0-0.2) Brief Hospital Course Mr. Figueroa is a 74 old male, admit with cough and dyspnea, outpatient pneumonia that did not improve with doxy PO Discharge Information Scheduled Aspirin (Aspirin) 81 Mg Tab.chew, 1 TAB PO DAILY for NE, #30 Ref 3 (Reported) Entered as Reported by: VINICIO SCOTT on 11/16/192027 Last Taken: Unknown Dose on 11/15/19 Last Action: Continued on 11/16/192217 by JAKY BIRCH Ezetimibe/Simvastatin (Vytorin 10-40 Mg Tablet) 1 Each Tablet, 1 TAB PO HS for cholesterol for 30 Days, #30 Ref 0 (Reported) Entered as Reported by: VINICIO SCOTT on 11/16/192210 Last Taken: Unknown Dose on 11/15/19 Last Action: Converted on 11/16/192217 by JAKY BIRCH Levofloxacin (Levaquin) 750 Mg Tablet, 1 TAB PO DAILY for pneumonia for 8 Days, #8 Ref 0 Prescribed by: JAKY BIRCH on 11/17/19 1226 Lisinopril (Lisinopril) 10 Mg Tablet, 1 TAB PO DAILYWBKFT for blood pressure, #30 Ref 5 (Reported) Entered as Reported by: VINICIO SCOTT on 11/16/192027 Last Taken: Unknown Dose on 11/15/19 Last Action: Continued on 11/16/192217 by JAKY BIRCH Metoprolol Succinate (Toprol Xl) 25 Mg Tab.er.24h, 2 TAB PO DAILYWBKFT for blood pressure for 30 Days, #60 Ref 0 (Reported) Entered as Reported by: VINICIO SCOTT on 11/16/192027 Last Taken: Unknown Dose on 11/15/19 Last Action: Continued on 11/16/192217 by JAKY BIRCH Pantoprazole Sodium (Protonix) 20 Mg Tablet.dr, 2 TAB PO DAILY for acid reflux, #30 (Reported) Entered as Reported by: VINICIO SCOTT on 11/16/192027 Last Taken: Unknown Dose on 11/15/19 Last Action: Converted on 11/16/192217 by JAKY BIRCH Sitagliptin Phos/Metformin Hcl (Janumet 50-1,000 Mg Tablet) 1 Each Tablet, 1 TAB PO BID for diabetes, #60 Ref 5 (Reported) Entered as Reported by: VINICIO SCOTT on 11/16/192027 Last Taken: Unknown Dose on 11/15/19 Last Action: Converted on 11/16/192217 by JAKY BIRCH Tamsulosin Hcl (Flomax) 0.4 Mg Cap.er.24h, 2 CAP PO HS for retention, #30 Ref 11 (Reported) Entered as Reported by: VINICIO SCOTT on 11/16/192027 Last Taken: Unknown Dose on 11/15/19 Last Action: Continued on 11/16/192217 by JAKY BIRCH Patient Instructions Patient Instructions time > 30 min, face to face and phone call later to discuss CT scan findings CTANGIO IMPRESSION: No pulmonary embolism. Consolidative lung infiltrates within the lower lobes bilaterally worse on the left side. Bilateral pneumonia or aspiration pneumonitis. Minimal small bilateral pleural effusions are seen. Reactive mediastinal and hilar lymphadenopathy. Calcified atheromatous disease of the coronary arteries. Mild cardiomegaly. JAKY BIRCH MD Nov 17, 2019 17:16
[2019-11-17] MEDS ORDERED: LACTOBACILLUS RHAMNOSUS GG 1 CAPSULE. PO SCH (21:00)
[2019-11-19] MEDS ORDERED: metFORMIN 500 MG TABLET PO SCH (17:00)
== END 2019-11-17 16:20 | disposition home or self-care (01) | DRG 178 ==
LOC: ER 15:07 → 4 NORTH 17:25
PROVIDERS: ADMIT Internal Medicine; ATTEND Internal Medicine
PROC: 5A09357 Assistance with Respiratory Ventilation, Less than 24 Consecutive Hours, Continuous Positive Airway Pressure (ICD-10-PCS; principal; 2019-11-16)
DX: J15.6 Pneumonia due to other Gram-negative bacteria (principal); J98.11 Atelectasis; E83.42 Hypomagnesemia; I25.10 Atherosclerotic heart disease of native coronary artery without angina pectoris; K21.9 Gastro-esophageal reflux disease without esophagitis; G47.33 Obstructive sleep apnea (adult) (pediatric); E66.9 Obesity, unspecified; R09.1 Pleurisy; R59.0 Localized enlarged lymph nodes; I10 Essential (primary) hypertension; E11.9 Type 2 diabetes mellitus without complications; I25.2 Old myocardial infarction; Z79.899 Other long term (current) drug therapy; Z79.84 Long term (current) use of oral hypoglycemic drugs; Z79.82 Long term (current) use of aspirin; Z68.38 Body mass index [BMI] 38.0-38.9, adult
CPT/HCPCS: 36415; 71045; 71275; 80053; 82553; 82962; 83605; 83735; 83880; 84145; 84484; 85025; 87040; 87804; 93005; 94640; 94760; 96365; 96366; 96367; 96368; J1956; J2543; J3475; J7620; Q9967; 99285-25; G0378